=== PATIENT | male | born 1975 | race Caucasian/White ===

== ENCOUNTER 2016-05-07 20:39 | Emergency (ER) | payer MEDICAID | END 2016-05-07 21:43 | disposition home or self-care (01) | LOC: D.ER 20:39 | DX: K64.4 Residual hemorrhoidal skin tags (principal); F17.200 Nicotine dependence, unspecified, uncomplicated; K21.9 Gastro-esophageal reflux disease without esophagitis; I10 Essential (primary) hypertension ==

== ENCOUNTER 2016-08-16 17:58 | Emergency (ER) | payer MEDICAID ==
[2016-08-16 18:42] LABS: APPEARANCE CLEAR (CLEAR); COLOR YELLOW (YELLOW)
[2016-08-16 18:43] LABS: BILIRUBIN NEGATIVE (NEGATIVE); GLUCOSE NEGATIVE (NEGATIVE); KETONE NEGATIVE (NEGATIVE); LEUKOCYTE ESTERASE NEGATIVE (NEGATIVE); NITRITE NEGATIVE (NEGATIVE); PROTEIN NEGATIVE (NEGATIVE)
== END 2016-08-16 19:44 | disposition home or self-care (01) ==
LOC: D.ER 17:58
PROVIDERS: Emergency Medicine
DX: S39.012A Strain of muscle, fascia and tendon of lower back, initial encounter (principal); X58.XXXA Exposure to other specified factors, initial encounter; Y93.89 Activity, other specified; Y92.019 Unspecified place in single-family (private) house as the place of occurrence of the external cause; M54.5 Low back pain; K21.9 Gastro-esophageal reflux disease without esophagitis; I10 Essential (primary) hypertension; F17.200 Nicotine dependence, unspecified, uncomplicated

== ENCOUNTER 2016-12-11 02:22 | Emergency (ER) | payer MEDICAID | END 2016-12-11 02:43 | disposition home or self-care (01) | LOC: D.ER 02:22 | DX: R20.0 Anesthesia of skin (principal); S80.211A Abrasion, right knee, initial encounter; Y93.83 Activity, rough housing and horseplay; Y93.89 Activity, other specified; Y92.019 Unspecified place in single-family (private) house as the place of occurrence of the external cause; I10 Essential (primary) hypertension; K21.9 Gastro-esophageal reflux disease without esophagitis; F17.200 Nicotine dependence, unspecified, uncomplicated ==

== ENCOUNTER 2018-01-07 19:23 | Emergency (ER) | payer MEDICAID ==
[~2018-01-07] VITALS: Ht 172.7 cm; Wt 90.9 kg
[2018-01-07 19:38] VITALS: Ht 172.7 cm; Wt 90.9 kg
[2018-01-07] MEDS ORDERED: PROZAC20 MG PO (19:39)
[2018-01-07] MEDS ORDERED: ADDERALL XR 2525 MG PO (19:39)
[2018-01-07] MEDS ORDERED: CLEOCIN HCL300 MG PO (20:05)
[2018-01-07 20:17] VITALS: BP 141/87
== END 2018-01-07 20:18 | disposition home or self-care (01) ==
LOC: D.ER 19:23
DX: L02.01 Cutaneous abscess of face (principal); F17.200 Nicotine dependence, unspecified, uncomplicated